=== PATIENT | female | born 1960 | race Caucasian/White ===

== ENCOUNTER → 2022-10-17 | Outpatient (CLI) | payer OTHER ==
[2022-10-17 19:03] LABS: Albumin, Blood 3.4 g/dL (3.4-5.0); Bilirubin, Total 0.4 mg/dL (0.1-1.0); Bun/Creatinine Ratio 24.7 (12.0-20.0); Calcium, Blood 9.3 mg/dL (8.5-10.1); Creatinine, Blood 0.61 mg/dL (0.40-1.00); Globulin, Blood 3.5 g/dL (2.2-4.0); Total Protein, Blood 6.9 g/dL (6.4-8.2)
== END | disposition home or self-care (01) ==
LOC: LAB SHORT 15:22
PROVIDERS: Internal Medicine
DX: R10.13 Epigastric pain (principal)
CPT/HCPCS: 80053; 83690

== ENCOUNTER 2022-12-08 12:31 | Day surgery (SDC) | payer OTHER ==
[~2022-12-08] VITALS: Ht 162.6 cm; Wt 75.6 kg
[2022-12-08] VITALS (13 sets, daily range): BP systolic 114–180; BP diastolic 59–154
[~2022-12-08 12:31] MED LIST: ALPR.25 PO
--- NOTE | 2022-12-08 17:00 | NUR ---
PATIENT ARRIVED TO UNIT VIA BED. PRENIO DRESSING TO LEFT HIP, C/D/I. POLAR PACK IN PLACE. PATIENT ABLE TO WIGGLE TOES, REPORTS NUMBNESS TO BLE D/T SPINAL, DENIES PAIN. VSS ON RA. LUNGS CLEAR. ORIENTED TO ROOM & CALL LIGHT, IN REACH.
--- NOTE | 2022-12-08 18:40 | NUR ---
SHIFT SUMMARY NO ACUTE CHANGES SINCE ARRIVAL TO UNIT. EATING & DRINKING WELL, HAS YET TO VOID SINCE ARRIVAL TO UNIT. VSS, CALLS APPROPRIATELY, IN REACH. WILL REPORT TO ONCOMING RN AT 1900.
--- NOTE | 2022-12-09 03:04 | NUR ---
SHIFT SUMMARY: POD 0 LEFT TOTAL HIP- ANTERIOR PATIENT IS A&OX4. VS ARE WNL AND IS ON RA. PATIENT HAD 2 EPISODES OF NAUSEA WITH EMESIS, BUT AFTER SHE WAS GIVEN IV ZOFRAN AND REGLAN PATIENT HAS NOT BEEN NAUSEOUS/VOMITING SINCE. HER LEFT HIP HAS A PRIMEO DRESSING THAT IS C/D/I. DENIES NUMBNESS OR TINGLING. CAN MOVE ALL FINGERS AND TOES WHEN ASKED. PATIENT IS A SBA WITH FWW AND GAIT BELT. PAIN IS MANAGED WITH PO TYLENOL AND IV TORADOL AT THIS TIME. PATIENT CALLS APPROPRIATELY. SHE IS LAYING IN BED WITH CALL LIGHT IN REACH.
[2022-12-09 04:21] VITALS: BP 126/62
[2022-12-09 04:21] LABS: BASOPHILS ABSOLUTE AUTO 0.02 K/mm3 (0.00-0.23); BASOPHILS PERCENT AUTO 0 % (0-2); EOSINOPHILS PERCENT AUTO 0 % (0-6); Hematocrit 38.8 % (33.0-51.0); IMMATURE GRAN ABSOLUTE AUTO 0.06 K/mm3 (0.00-0.10); IMMATURE GRAN PERCENT AUTO 0 % (0-1); LYMPHOCYTES ABSOLUTE AUTO 1.24 K/mm3 (0.84-5.20); LYMPHOCYTES PERCENT AUTO 9 % (21-46); MONOCYTES ABSOLUTE AUTO 1.02 K/mm3 (0.16-1.47); MONOCYTES PERCENT AUTO 8 % (4-13); Mean Corpuscular HGB 31.3 pg (26.0-34.0); Mean Corpuscular HGB Conc 33.5 g/dL (31.5-36.5); Mean Corpuscular Volume 94 fL (80-100); Mean Platelet Volume 9.1 fL (9.1-12.4); NEUTROPHILS PERCENT AUTO 83 % (41-73); Platelet Count 286 K/mm3 (150-400); RDW Coefficient Variation 12.6 % (11.7-14.2); RDW Standard Deviation 43.3 fL (35.1-46.3); Red Blood Cell Count 4.15 M/mm3 (3.80-5.20); White Blood Cell Count 13.54 K/mm3 (4.00-11.30)
[2022-12-09 04:35] LABS: Magnesium, Blood 2.1 mg/dL (1.6-2.4)
[2022-12-09 05:00] LABS: Anion Gap Unable to Calculate mmol/L (6-16); Blood Urea Nitrogen 20 mg/dL (8-24); Bun/Creatinine Ratio 31.5 (12.0-20.0); CO2, Blood 30 mmol/L (21-32); Calcium, Blood 8.9 mg/dL (8.5-10.1); Chloride, Blood 106 mmol/L (98-108); Creatinine, Blood 0.64 mg/dL (0.40-1.00); Glomerular Filtration Rate 99 (60-); Glucose, Blood 110 mg/dL (70-99); Potassium, Blood 4.5 mmol/L (3.5-5.5); Sodium, Blood 135 mmol/L (136-145)
[2022-12-09 08:39] VITALS: BP 137/52
--- NOTE | 2022-12-09 11:42 | NUR ---
ESCORTED OUT VIA W/C
== END 2022-12-09 11:41 | disposition home or self-care (01) ==
LOC: ORSCMMR 12:31 → ORD 14:15 → ORSCMMR 15:00 → ORD 16:00 → SURS 16:45 → ORSCMMR 12-09 11:41
PROVIDERS: Orthopaedic Surgery
PROC: 0SRB0JA Replacement of Left Hip Joint with Synthetic Substitute, Uncemented, Open Approach (ICD-10-PCS; principal; 2022-12-08 15:00)
DX: M16.12 Unilateral primary osteoarthritis, left hip (principal); Z87.891 Personal history of nicotine dependence; Z79.899 Other long term (current) drug therapy
CPT/HCPCS: 36415; 72170; 80048; 83735; 85025; 94760; 97110; 97116; 97162; A9270; C1713; C1776; J0171; J0690; J0735; J1885; J2250; J2405; J2704; J2765; J2795; J3010; J7120

== ENCOUNTER → 2023-04-28 | Outpatient (CLI) | payer OTHER | END | disposition home or self-care (01) | LOC: LAB SHORT 12:30 → LAB 12:30 | DX: R30.0 Dysuria (principal) | CPT/HCPCS: 87077; 87086; 87186 ==

== ENCOUNTER 2023-05-28 07:31 | Day surgery (SDC) | payer OTHER ==
[~2023-05-28] VITALS: Ht 163 cm; Wt 62.0 kg
[2023-05-28] VITALS (22 sets, daily range): BP systolic 82–139; BP diastolic 45–72
--- NOTE | 2023-05-28 07:50 | NUR ---
Ambulatory in Day Surgery. History, Chart, Medications and Allergies reviewed before start of procedure. Patient states colon prep results yellow/clear. Patient States Post-Procedure ride home has been arranged. Patient confirms NPO status and agrees with scheduled surgery.
--- NOTE | 2023-05-28 08:14 | NUR ---
05/28/23 0814 Shawna Landry HISTORY, CHART, MEDICATIONS AND ALLERGIES REVIEWED BEFORE START OF PROCEDURE. PATIENT CONFIRMS NPO STATUS AND AGREES WITH SCHEDULED PROCEDURE. 3-LEAD EKG REVIEWED WITH PHYSICIAN PRIOR TO START OF PROCEDURE. MONITOR INTACT WITH CONTINUOUS PULSE OXIMETRY,CAPNOGRAPHY, 3-LEAD EKG, INTERMITTENT BP. SUPPLEMENTAL O2 TO BE TITRATED THROUGHOUT PROCEDURE TO MAINTAIN O2 SATURATION ABOVE 90%. PATIENT DETERMINED TO BE ASA APPROPRIATE FOR PROPOFOL SEDATION PRIOR TO START OF PROCEDURE BY DR. CORTES.
--- NOTE | 2023-05-28 09:20 | NUR ---
Patient up to Ambulate independently. Gait steady. Discharge instructions reviewed with patient. Patient verbalizes understanding. Copy given to patient to take home. Discharged via wheelchair to private car for ride home.
== END 2023-05-28 09:17 | disposition home or self-care (01) ==
LOC: ORSCMMR 07:31 → ORD 08:00 → ORSCMMR 09:17
PROVIDERS: Internal Medicine Gastroenterology
PROC: 0DB48ZX Excision of Esophagogastric Junction, Via Natural or Artificial Opening Endoscopic, Diagnostic (ICD-10-PCS; principal; 2023-05-28 08:00)
PROC: 0DJD8ZZ Inspection of Lower Intestinal Tract, Via Natural or Artificial Opening Endoscopic (ICD-10-PCS; principal; 2023-05-28 08:00)
PROC: 0DB58ZX Excision of Esophagus, Via Natural or Artificial Opening Endoscopic, Diagnostic (ICD-10-PCS; principal; 2023-05-28 08:00)
DX: K21.9 Gastro-esophageal reflux disease without esophagitis (principal); Z12.11 Encounter for screening for malignant neoplasm of colon; Z86.010 Personal history of colon polyps; F41.9 Anxiety disorder, unspecified; Z79.899 Other long term (current) drug therapy
CPT/HCPCS: 43239; G0105; 88305; A9270; J2250; J2704; J7120

== ENCOUNTER → 2024-02-24 | Outpatient (CLI) | payer OTHER | LOC: LAB SHORT 12:34 → LAB 12:34 | DX: R30.0 Dysuria (principal) | CPT/HCPCS: 87077; 87086; 87186 ==

== ENCOUNTER → 2024-03-09 | Outpatient (CLI) | payer OTHER | LOC: LAB SHORT 08:57 → LAB 08:57 | DX: R30.0 Dysuria (principal) | CPT/HCPCS: 87077; 87086; 87186 ==

== ENCOUNTER → 2024-04-12 | Outpatient (CLI) | payer OTHER ==
[2024-04-12 15:09] LABS: BASOPHILS ABSOLUTE AUTO 0.04 K/mm3 (0.00-0.23); BASOPHILS PERCENT AUTO 1 % (0-2); EOSINOPHILS ABSOLUTE AUTO 0.12 K/mm3 (0.00-0.68); EOSINOPHILS PERCENT AUTO 2 % (0-6); Hemoglobin 15.5 g/dL (11.5-16.0); IMMATURE GRAN ABSOLUTE AUTO 0.03 K/mm3 (0.00-0.10); IMMATURE GRAN PERCENT AUTO 1 % (0-1); LYMPHOCYTES ABSOLUTE AUTO 2.55 K/mm3 (0.84-5.20); LYMPHOCYTES PERCENT AUTO 40 % (21-46); MONOCYTES ABSOLUTE AUTO 0.42 K/mm3 (0.16-1.47); MONOCYTES PERCENT AUTO 7 % (4-13); Mean Corpuscular HGB 31.9 pg (26.0-34.0); Mean Corpuscular Volume 97 fL (80-100); Mean Platelet Volume 8.9 fL (9.1-12.4); NEUTROPHILS PERCENT AUTO 50 % (41-73); Platelet Count 301 K/mm3 (150-400); RDW Coefficient Variation 13.3 % (11.7-14.2); Red Blood Cell Count 4.86 M/mm3 (3.80-5.20); White Blood Cell Count 6.36 K/mm3 (4.00-11.30)
[2024-04-12 15:26] LABS: Albumin, Blood 3.9 g/dL (3.4-5.0); Bilirubin, Total 0.3 mg/dL (0.1-1.0); Bun/Creatinine Ratio 25.3 (12.0-20.0); Calcium, Blood 9.6 mg/dL (8.5-10.1); Creatinine, Blood 0.75 mg/dL (0.40-1.00); Globulin, Blood 4.1 g/dL (2.2-4.0); Potassium, Blood 4.2 mmol/L (3.5-5.5)
== END ==
LOC: LAB SHORT 15:05 → LAB 15:05
PROVIDERS: Physician Assistant
DX: R07.9 Chest pain, unspecified (principal)
CPT/HCPCS: 80053; 83690; 85025; 85379

== ENCOUNTER 2024-12-05 06:03 | Day surgery (SDC) | payer OTHER ==
[~2024-12-05] VITALS: Ht 161 cm; Wt 71.2 kg
[2024-12-05] VITALS (9 sets, daily range): BP systolic 85–136; BP diastolic 51–80
[~2024-12-05 06:03] MED LIST changes: +ESZO1 PO; +FAMO40 PO
[2024-12-05] MEDS ORDERED: ACET500 PO (06:26)
--- NOTE | 2024-12-05 06:34 | NUR ---
History, Chart, Medications and Allergies reviewed before start of procedure. Patient confirms NPO status and agrees with scheduled surgery. Reports taking Fleets enema per order. Patient States Post-Procedure ride home has been arranged with .
[2024-12-05] MEDS ORDERED: Lactated Ringer's 1,000 ML IV SCH (06:35)
[2024-12-05] MEDS ORDERED: Bupivacaine 0.5% HCl 5 MG/ML 30MLVIAL ONE (07:05)
[2024-12-05] MEDS ORDERED: Scopolamine Hydrobromide Patch TD SCH (07:25)
[2024-12-05] MEDS ORDERED: Scopolamine Hydrobromide Patch ONE (07:29)
[2024-12-05] MEDS ORDERED: FentaNYL Citrate 50 MCG/ML 2 ML Injection ONE (07:30)
[2024-12-05] MEDS ORDERED: propofoL 20 ML IV ONE ×3 (07:30→07:33)
[2024-12-05] MEDS ORDERED: Dexamethasone Sod Phos 10 MG/ML 1ML VIAL ONE (07:31)
[2024-12-05] MEDS ORDERED: Lidocaine HCl 2% 20 ML MDV ONE (07:31)
[2024-12-05] MEDS ORDERED: Ondansetron HCl 2 MG / ML 2ML Vial ONE (07:31)
[2024-12-05] MEDS ORDERED: Midazolam HCl 1MG / ML 2ML Vial ONE (07:37)
[2024-12-05] MEDS ORDERED: Prochlorperazine Edisylate 10 mg Vial IV PRN (07:55)
[2024-12-05] MEDS ORDERED: FentaNYL Citrate 50 MCG/ML 2 ML Injection IV PRN (07:55)
[2024-12-05] MEDS ORDERED: HYDROmorphone HCl/Pf 1MG SYR IV PRN (07:55)
[2024-12-05] MEDS ORDERED: Albuterol 2.5 MG/3 ML VIAL INH PRN (07:55)
[2024-12-05] MEDS ORDERED: HYDROcodone 5-APAP 325 TAB PO PRN (08:30)
--- NOTE | 2024-12-05 09:12 | NUR ---
Patient up to Ambulate independently STAND BY ASSSIST DUE TO INCREASED FALLRISK FROM ANESTHESIA. GAIT STEADY. Dressing to procedure site clean, dry, intact with no visible drainage, swelling, erythema or bruising noted.PRESCRIPTIONS SENT ELECTRONICALLY TO PHARMACY PER DR MCKEON. MARION BATH AT HOME PER PT. Discharge instructions reviewed with patient. Patient verbalizes understanding. Copy given to patient AND to take home.
== END 2024-12-05 09:10 | disposition home or self-care (01) ==
LOC: ORSCMMR 06:03 → ORD 07:30 → ORSCMMR 07:30
PROVIDERS: Surgery
PROC: 06BY0ZC Excision of Hemorrhoidal Plexus, Open Approach (ICD-10-PCS; principal; 2024-12-05 07:30)
DX: K64.4 Residual hemorrhoidal skin tags (principal); K64.8 Other hemorrhoids; K21.9 Gastro-esophageal reflux disease without esophagitis; F41.9 Anxiety disorder, unspecified; M19.90 Unspecified osteoarthritis, unspecified site; Z87.891 Personal history of nicotine dependence; Z79.899 Other long term (current) drug therapy
CPT/HCPCS: 88304; A9270; J1100; J2250; J2405; J2704; J3010; J7120

== ENCOUNTER → 2025-03-07 | Outpatient (CLI) | payer OTHER ==
[~2025-03-07] MED LIST changes: +ACET500 PO
== END | disposition home or self-care (01) ==
LOC: LAB 16:13 → LAB SHORT 16:13
DX: R30.0 Dysuria (principal)
CPT/HCPCS: 87077; 87086; 87186